=== PATIENT | female | born 1960 | race African-American/Black ===

== ENCOUNTER 2024-06-02 10:36 | Outpatient (CLI) | payer MEDICARE, MEDICAID, SELFPAY ==
--- NOTE | 2024-06-02 | EST_ITS ---
Patient Info Name: Mercedes Lozano Age: 64 years : 1960 Gender: Female Ht: 71 in Wt: 225 lbs BSA: 2.29 m2 Exam Date: 06/02/2024 11:50 AM Exam Location: [facility] Patient Status: Outpatient Admit Date: 06/02/2024 Staff Ordering Physician: Navarro Wilson MD Attending Provider: Navarro Wilson MD Exercise Technologist: Zoila Martinez RDCS Nurse: Sofy Hart APN Exam Type: CA stress jorge w NM Study Info Indications R07.9 - Chest pain, unspecified A regadenoson stress test was performed. Summary 1. No abnormal ST/T wave changes diagnostic of ischemia with exercise. 2. Please correlate with nuclear medicine images, reported separately. 3. Stress test supervised by Sofy Hart NP. Stress test interpreted by Héctor Townsend MD. Protocol: Lexiscan Stress ECG Details Stage: REST Duration (min): 1 min : 47 sec HR (bpm): 58 SBP (mmHg): 167 DBP (mmHg): 73 Stage: REST Duration (min): 4 min : 47 sec HR (bpm): 59 SBP (mmHg): 167 DBP (mmHg): 73 Stage: STAGE 1 Duration (min): 1 min : 0 sec HR (bpm): 96 SBP (mmHg): 167 DBP (mmHg): 73 Stage: RECOVERY Duration (min): 1 min : 0 sec HR (bpm): 93 SBP (mmHg): 166 DBP (mmHg): 92 Stage: RECOVERY Duration (min): 2 min : 0 sec HR (bpm): 90 SBP (mmHg): 166 DBP (mmHg): 66 Stage: RECOVERY Duration (min): 3 min : 0 sec HR (bpm): 88 SBP (mmHg): 161 DBP (mmHg): 67 Stage: RECOVERY Duration (min): 3 min : 5 sec HR (bpm): 91 SBP (mmHg): 161 DBP (mmHg): 67 Rest HR: 59 bpm Peak HR: 113 bpm Rest Sys BP: 167 mmHg Peak Sys BP: 166 mmHg Max Pred HR: 156 bpm % Max Pred HR: 72 % Target HR: 133 bpm Max RPP: 18,758 bpm*mmHg Total Time: 1 min : 0 sec Rest Antoine BP: 73 mmHg Peak Antoine BP: 92 mmHg Total Dose: 0.4 mg Resting ECG Sinus bradycardia with sinus arrhythmias. Stress ECG Sinus tachycardia. No abnormal ST/T wave changes diagnostic of ischemia with exercise. Arrhythmias None. Report Signatures
--- NOTE | ~2024-06-02 | NM_ITS ---
EXAMINATION: NM jorge stress w perfusion DATE: 06/02/2024 12:46 INDICATION: Chest pain TECHNIQUE: Rest images were obtained following intravenous administration of 8.8 mCi Tc99m tetrofosmi n (Myoview). The patient was infused intravenously with Lexiscan (Regadenoson). Then, 28.0 mCi Tc99m tetrofosmin (Myoview) was administered intravenously, and stress images were obtained, initially in t he supine position with repeat post stress imaging obtained in the prone position. Data was reconstru cted into short axis and horizontal and vertical long axis SPECT images. Gated SPECT images were also obtained. COMPARISON: None. FINDINGS: There is a nonreversible moderate to severe perfusion defect involving the apical inferior and mid inferior segments consistent with infarct. Likely diaphragmatic attenuation artifact at the b asilar inferior segment which normalizes with prone imaging. There is moderate reversible ischemia at the adjacent mid inferolateral segment. Additional small mild nonreversible infarct at the mid anter ior wall. There is normal left ventricular chamber size, wall motion and ejection fraction. Left sean tricular ejection fraction measures 62%. IMPRESSION: 1. Small to moderate-sized, moderate to severe infarct at the anterior inferior and mid inferior segm ents with moderate reversible ischemia in the immediately adjacent mid inferolateral segment. 2. Separate small mild infarct at the mid anterior segment. 2. Left ventricular ejection fraction measuring 62%. Reviewed, dictated and finalized at location A. IMPRESSION: 1. Small to moderate-sized, moderate to severe infarct at the anterior inferior and mid inferior segments with moderate reversible ischemia in the immediately adjacent mid inferolateral segment. 2. Separate small mild infarct at the mid anterior segment. 2. Left ventricular ejection fraction measuring 62%.
== END 2024-06-02 10:37 | disposition home or self-care (01) ==
LOC: ANHCARD 10:41
PROVIDERS: PCP Internal Medicine Gastroenterology; Visit Provider Internal Medicine Cardiovascular Disease
DX: R07.9 Chest pain, unspecified (principal); R06.02 Shortness of breath; I42.8 Other cardiomyopathies; I25.10 Atherosclerotic heart disease of native coronary artery without angina pectoris; I10 Essential (primary) hypertension
CPT/HCPCS: 78452; 93017; A9502; J2785